=== PATIENT | female | born 1940 | race Native Hawaiian/Other Pacific Islander ===

== ENCOUNTER 2016-12-08 13:24 | Outpatient (CLI) | payer OTHER | END 2016-12-08 19:23 | disposition home or self-care (01) | LOC: RAD 13:24 | DX: M81.8 Other osteoporosis without current pathological fracture (principal) ==

== ENCOUNTER 2017-03-18 09:59 | Emergency (ER) | payer OTHER ==
[~2017-03-18] VITALS: Ht 144.8 cm; Wt 68.0 kg
[2017-03-18 10:10] VITALS: TEMP 97.8
[2017-03-18 11:23] LABS: PLATELET COUNT 307 K/uL (152-353)
[2017-03-18 11:24] LABS: POTASSIUM 3.6 mmol/L (3.6-5.2)
[2017-03-18 12:53] VITALS: BP 147/82
== END 2017-03-18 12:53 | disposition home or self-care (01) ==
LOC: ED 09:59
DX: D72.828 Other elevated white blood cell count (principal)
CPT/HCPCS: 36415; 80053; 85027; 86318; 87040; 87205; 93005; 96365; 99284; J0696

== ENCOUNTER 2017-03-21 20:15 | Inpatient (IN) | payer OTHER ==
[~2017-03-21] VITALS: Ht 147.3 cm; Wt 68.3 kg
[2017-03-21] MEDS ORDERED: CITA20TA2 PO (20:32)
[2017-03-21] MEDS ORDERED: MELOXICAM7.5 MG OR (20:33)
[2017-03-21] MEDS ORDERED: CETIRIZINE10 MG PO (20:34)
[2017-03-21] MEDS ORDERED: TEMA15CA19 PO (20:35)
[2017-03-21] MEDS ORDERED: ASPIRIN 81 LOW81 MG PO (20:37)
[2017-03-21] MEDS ORDERED: CALCIUM 600+D1 T10 PO (20:37)
[2017-03-21 20:39] VITALS: BP 145/65; TEMP 97.8
[2017-03-21] MEDS ORDERED: TIOTCAP2 INH (20:39)
[2017-03-21] MEDS ORDERED: AMLO2.5T PO (20:40)
[2017-03-21 21:13] LABS: PLATELET COUNT 311 K/uL (152-353)
[2017-03-21 21:16] LABS: POTASSIUM 3.5 mmol/L (3.6-5.2); SODIUM 132 mmol/L (136-145)
[2017-03-21 21:33] LABS: PARTIAL THROMBOPLASTIN TIME 25.9 SECONDS (24.5-33.6)
[2017-03-21 23:32] VITALS: BP 138/78; TEMP 97.7; Ht 147.3 cm; Wt 68.3 kg
[2017-03-22] VITALS: BP 122/70; TEMP 98.4
[2017-03-22 04:00] VITALS: BP 121/50; TEMP 97.4
[2017-03-22 08:00] VITALS: BP 125/66; TEMP 97.8
[2017-03-22 12:00] VITALS: BP 143/75; TEMP 98.8
[2017-03-22 16:00] VITALS: BP 107/76; TEMP 97.8
[2017-03-22 20:00] VITALS: BP 141/71; TEMP 98.3
[2017-03-23] VITALS: BP 126/70; TEMP 98.1
[2017-03-23 04:00] VITALS: BP 138/65; TEMP 97.7
[2017-03-23 05:25] LABS: PLATELET COUNT 340 K/uL (152-353)
[2017-03-23 05:45] LABS: POTASSIUM 3.8 mmol/L (3.6-5.2)
[2017-03-23 08:00] VITALS: BP 107/62; TEMP 98.3
[2017-03-23 12:00] VITALS: BP 134/68; TEMP 98
== END 2017-03-23 13:00 | disposition home or self-care (01) | DRG 190 ==
LOC: ED 20:15 → MED/SURG 21:00
PROVIDERS: Internal Medicine; ADMIT Emergency Medicine
DX: J44.0 Chronic obstructive pulmonary disease with (acute) lower respiratory infection (principal); J18.8 Other pneumonia, unspecified organism; N39.0 Urinary tract infection, site not specified; N18.3 Chronic kidney disease, stage 3 (moderate); Z86.73 Personal history of transient ischemic attack (TIA), and cerebral infarction without residual deficits; K21.9 Gastro-esophageal reflux disease without esophagitis; M15.8 Other polyosteoarthritis
CPT/HCPCS: 36415; 80053; 81000; 82550; 82553; 85007; 85027; 85610; 85730; 87088; 94640; 94664; 94760; 96361; 96365; 96368; 96372; 96375; 99284; J0696; J1644; J2930; J3490